=== PATIENT | female | born 2000 | race Caucasian/White ===

== ENCOUNTER 2024-03-11 23:06 | Emergency (ER) | payer OTHER ==
[2024-03-11 23:33] LABS: Bilirubin Neg (Negative); Blood, Urine Negative (Negative); Clarity Clear (Clear); Glucose, Urine (Dipstick) Normal (Negative); Ketone, Urine Negative (Negative); Leukocyte Negative (Negative); Nitrite Negative (Negative); Protein, Urine (Dipstick) Negative (Neg-Trace); Urobilinogen Normal mg/dL (Less than 2)
[2024-03-11 23:45] LABS: Bacteria/HPF Rare-Few HPF (None Seen); CAUTI Indications for Culture Pelvic or flank pain; RBC/HPF 0-3 HPF (0-3); Squamous Epithelial 0-3 HPF (0-3); WBC/HPF 0-3 HPF (0-3)
[2024-03-11 23:46] LABS: Urine Culture Reflex No No
[2024-03-12 00:23] LABS: #Basophils 0.03 10x3/uL (0.0-0.2); #Eosinphils 0.03 10x3/uL (0.0-0.5); #Monocytes 0.57 10x3/uL (0.0-1.1); #Neutrophils 7.51 10x3/uL (1.5-8.4); %Basophils 0.3 % (0.0-2.0); %Eosinophils 0.3 % (0.0-6.0); %Lymphocytes 23.2 % (18.0-47.0); %Monocytes 5.4 % (0.0-10.0); %Neutrophils 70.4 % (40.0-75.0); Hematocrit 36.8 % (34.9-44.5); Hemoglobin 13.4 g/dL (12.0-15.5); Mean Corpuscular HGB CONC 36.4 g/dL (32.0-36.0); Mean Corpuscular Hemoglobin 31.9 pg (27.0-33.0); Mean Corpuscular Volume 87.6 fL (81.6-98.3); Platelet Count 261 10x3/uL (150-450); RBC Distribution Width 12.2 % (11.5-14.5); White Blood Cell (WBC) Count 10.7 10x3/uL (3.5-10.5)
[2024-03-12 15:35] LABS: Chlam.trachomatis by PCR,Urine Not Detected (NotDetected); GC N.gonorrhoeae PCR,UrineVOID Not Detected (NotDetected)
== END 2024-03-12 01:18 | disposition home or self-care (01) ==
LOC: CSHERS 23:06
DX: O99.891 Other specified diseases and conditions complicating pregnancy (principal); R10.30 Lower abdominal pain, unspecified; O99.281 Endocrine, nutritional and metabolic diseases complicating pregnancy, first trimester; E03.9 Hypothyroidism, unspecified; Z79.899 Other long term (current) drug therapy; Z3A.12 12 weeks gestation of pregnancy
CPT/HCPCS: 76856; 81001; 84702; 85025; 86900; 86901; 87491; 87591

== ENCOUNTER 2024-09-22 16:04 | Inpatient (IN) | payer OTHER ==
[~2024-09-22 16:04] MED LIST: Bupivacaine/Epinephrine 0.25% 30 ML VIAL ONE
[2024-09-22 17:02] LABS: Fetal Membranes Rupture RUPTURE DETECTED (No Rupture)
[2024-09-22 18:21] VITALS: BMI 34.6
[2024-09-22] MEDS ORDERED: Carboprost 250 MCG/ML AMP IM PRN (18:49)
[2024-09-22] MEDS ORDERED: Methylergonovine 0.2 MG/ML VIAL IM PRN (18:49)
[2024-09-22] MEDS ORDERED: HYDROcodone/Acetaminophen 5/325 mg Tablet PO PRN ×2 (18:49)
[2024-09-22] MEDS ORDERED: Diphenoxylate HCl/Atropine Tablet PO PRN ×2 (18:49)
[2024-09-22] MEDS ORDERED: Misoprostol 200 MCG TAB PR PRN (18:49)
[2024-09-22] MEDS ORDERED: Lidocaine 1% (PF) 30 ML VIAL SC PRN (18:49)
[2024-09-22] MEDS ORDERED: fentaNYL 50 mcg/mL 1 mL Vial SLOW IVP PRN (18:49)
[2024-09-22] MEDS ORDERED: hydrALAZINE 20 MG/ML VIAL SLOW IVP PRN (18:49)
[2024-09-22] MEDS ORDERED: Docusate 100 MG CAP PO PRN (18:49)
[2024-09-22] MEDS ORDERED: Zolpidem Tartrate 5 MG TAB PO PRN (18:49)
[2024-09-22] MEDS ORDERED: Promethazine HCl 25 MG/ML VIAL IM PRN (18:49)
[2024-09-22 20:56] LABS: Hematocrit 41.7 % (34.9-44.5); Hemoglobin 14.9 g/dL (12.0-15.5); Mean Corpuscular HGB CONC 35.7 g/dL (32.0-36.0); Mean Corpuscular Hemoglobin 32.9 pg (27.0-33.0); Mean Corpuscular Volume 92.1 fL (81.6-98.3); Mean Platelet Volume 11.4 fL (7.4-10.4); Platelet Count 225 10x3/uL (150-450); RBC Distribution Width 12.5 % (11.5-14.5); Red Blood Cell (RBC) Count 4.53 10x6/uL (3.90-5.03)
[2024-09-22 21:24] LABS: HBsAg Index 0.18 S/CO (0-0.99); HIV (1/2) Antibody/Antigen Non-Reactive (NonReactive); HIV 1/2 INDEX 0.04 S/CO (<1.00); Hep B Surf Ag - L&D Non-Reactive S/CO (NonReactive); Syphilis Antibody Nonreactive (Nonreactive); Syphilis Antibody Index 0.07 S/CO (<1.00 Non-Reactive)
[2024-09-23] MEDS: Lactated Ringer's 1,000 ML IV SCH (01:51)
[2024-09-23] MEDS: fentaNYL/Ropivacaine Epidural 100 ML ONE (02:08)
[2024-09-23] MEDS ORDERED: Ondansetron PF 4 MG/2 ML Vial IVP PRN ×2 (02:27→17:39)
[2024-09-23] MEDS ORDERED: Acetaminophen 325 MG TAB PO PRN (02:27)
[2024-09-23] MEDS ORDERED: Lactated Ringer's 500 ML IV PRN (02:27)
[2024-09-23] MEDS ORDERED: Promethazine HCl 25 MG/ML VIAL IM PRN (02:27)
[2024-09-23] MEDS ORDERED: Moisturizing Cream (Eucerin) 113 GM JAR TOP PRN (02:27)
[2024-09-23] MEDS ORDERED: Naloxone HCl 0.4 mg/ml Vial IVP PRN ×2 (02:27)
[2024-09-23] MEDS ORDERED: diphenhydrAMINE 50 MG/ML VIAL IVP PRN (02:27)
[2024-09-23] MEDS ORDERED: ePHEDrine Sulfate 50 MG/10 ML VIAL SLOW IVP PRN (02:27)
[2024-09-23] MEDS ORDERED: Communication Order-Pharmacy FS SCH (02:30)
[2024-09-23] MEDS: Oxytocin 30 units/NS 500 ML 500 ML IV SCH ×2 (02:58→17:39)
[2024-09-23] MEDS ORDERED: Oxytocin 30 units/NS 500 ML 500 ML IV SCH ×2 (03:00→17:45)
[2024-09-23] MEDS: Calcium Carbonate 500 MG ChewTAB PO SCH (07:41)
[2024-09-23] MEDS: Ondansetron PF 4 MG/2 ML Vial IVP PRN (07:41)
[2024-09-23] MEDS: fentaNYL 2 mcg/Ropivacaine 0.2% Epidural 100 ML CADD EPIDURAL SCH (14:14)
[2024-09-23] MEDS ORDERED: Bisacodyl 10 MG SUPP PR PRN (17:39)
[2024-09-23] MEDS ORDERED: diphenhydrAMINE 25 MG CAP PO PRN (17:39)
[2024-09-23] MEDS ORDERED: Misoprostol 200 MCG TAB VAG PRN (17:39)
[2024-09-23] MEDS ORDERED: Lanolin Ointment 7 GM TUBE TOP PRN (17:39)
[2024-09-23] MEDS ORDERED: hydrALAZINE 20 MG/ML VIAL SLOW IVP PRN (17:39)
[2024-09-23] MEDS ORDERED: Methylergonovine 0.2 MG/ML VIAL IM PRN (17:39)
[2024-09-23] MEDS: Ibuprofen 800 MG TAB PO PRN (17:39)
[2024-09-23] MEDS ORDERED: Milk Of Magnesia 30 ML UDCUP PO PRN (17:39)
[2024-09-23] MEDS ORDERED: Benzocaine-Menthol 82.5 ML CAN TOP PRN (17:39)
[2024-09-23] MEDS: Docusate 100 MG CAP PO SCH (22:24)
[2024-09-23] MEDS: Boostrix 0.5 ML (Tdap) VIAL (>/=7 yrs of age) IM ONE (22:24)
[2024-09-24] MEDS: Ibuprofen 800 MG TAB PO SCH (00:52)
[2024-09-24] MEDS ORDERED: HYDROcodone/Acetaminophen 5/325 mg Tablet PO PRN ×2 (02:30)
[2024-09-24] MEDS ORDERED: Zolpidem Tartrate 5 MG TAB PO PRN (02:30)
[2024-09-24 03:56] LABS: Hematocrit 34.9 % (34.9-44.5); Hemoglobin 12.3 g/dL (12.0-15.5); Mean Corpuscular HGB CONC 35.2 g/dL (32.0-36.0); Mean Corpuscular Hemoglobin 32.6 pg (27.0-33.0); Mean Corpuscular Volume 92.6 fL (81.6-98.3); Mean Platelet Volume 11.5 fL (7.4-10.4); Platelet Count 160 10x3/uL (150-450); RBC Distribution Width 12.8 % (11.5-14.5); Red Blood Cell (RBC) Count 3.77 10x6/uL (3.90-5.03)
[2024-09-24] MEDS: Ferrous Sulfate 325 MG TAB PO SCH (12:41)
[2024-09-24] MEDS: Prenatal Vitamin 1 TAB PO SCH (12:41)
[2024-09-24] MEDS: Acetaminophen 325 MG TAB PO PRN (12:45)
[2024-09-25] MEDS: Witch Hazel 100 PAD JAR TOP PRN (20:03)
[2024-09-26 09:33] VITALS: BP 134/82; TEMP 97.7
[2024-09-26] MEDS: Preparation H Ointment 28 GM TUBE PR PRN (10:40)
== END 2024-09-26 15:30 | disposition home or self-care (01) | DRG 807 ==
LOC: CSHLD/OP 16:04 → CSHLD 18:03 → CSHPP 09-23 19:50
PROVIDERS: ADMIT Obstetrics & Gynecology; ATTEND Obstetrics & Gynecology
PROC: 10H07YZ Insertion of Other Device into Products of Conception, Via Natural or Artificial Opening (ICD-10-PCS; principal; 2024-09-23)
PROC: 10E0XZZ Delivery of Products of Conception, External Approach (ICD-10-PCS; 2024-09-23)
PROC: 0KQM0ZZ Repair Perineum Muscle, Open Approach (ICD-10-PCS; 2024-09-23)
PROC: 10907ZC Drainage of Amniotic Fluid, Therapeutic from Products of Conception, Via Natural or Artificial Opening (ICD-10-PCS; 2024-09-23)
DX: O42.02 Full-term premature rupture of membranes, onset of labor within 24 hours of rupture (principal); Z37.0 Single live birth; Z3A.39 39 weeks gestation of pregnancy; O99.284 Endocrine, nutritional and metabolic diseases complicating childbirth; E03.9 Hypothyroidism, unspecified; Z79.899 Other long term (current) drug therapy; O70.1 Second degree perineal laceration during delivery
CPT/HCPCS: 36415; 51702; 84112; 85027; 86762; 86780; 86850; 86900; 86901; 87340; 87389; 88307; 99285; J2405; J2590; J7120